=== PATIENT | female | born 1980 | race African-American/Black ===

== ENCOUNTER 2017-04-24 10:46 | Inpatient (IN) | payer OTHER ==
[~2017-04-24] VITALS: Ht 165.1 cm; Wt 85.7 kg
[2017-04-24] MEDS ORDERED: MORPHINE SULFATE 4 MG/ML CPJ (NOT FOR IM USE) IV STA (10:56)
[2017-04-24] MEDS ORDERED: MAGNESIUM/ALUMINUM HYDROXIDE/SIMETHICONE 30ML UDC PO STA (10:56)
[2017-04-24] MEDS ORDERED: VISCOUS LIDOCAINE 2% 15 ML UDC PO STA (10:56)
[2017-04-24] MEDS ORDERED: SODIUM CHLORIDE 0.9% 1,000 ML IV ONE (10:56)
[2017-04-24] MEDS ORDERED: FAMOTIDINE 20MG/2ML VIAL IV STA (10:56)
[2017-04-24] MEDS ORDERED: DICYCLOMINE 10 MG/5 ML ORAL SYR PO STA (10:56)
[2017-04-24] MEDS ORDERED: ONDANSETRON HCL 4MG/2ML VIAL IV STA (10:56)
[2017-04-24] MEDS ORDERED: NORCO (10:58)
[2017-04-24] MEDS ORDERED: CEPH500C2 PO (10:58)
[2017-04-24 11:31] LABS: EOSINOPHILS % 0.2 % (0.0-5.0); HEMATOCRIT. 40.4 % (36.0-48.0); HEMOGLOBIN. 13.4 g/dL (12.0-16.0); LYMPHOCYTES % 18.5 % (20.0-50.0); MEAN CORPUSCULAR HEMOGLOBIN 28.1 pg (28.0-32.0); MEAN CORPUSCULAR VOLUME 84.9 fL (81.0-99.0); MEAN PLATELET VOLUME 7.6 fl (7.4-10.4); MONOCYTES % 4.7 % (2.0-8.0); NEUTROPHILS % 75.6 % (40.0-76.0); PLATELET 291 x1000/uL (130-400); RED BLOOD CELL COUNT 4.76 mill/uL (4.2-5.4); RED CELL DISTRIBUTION WIDTH 14.1 % (11.6-14.6)
[2017-04-24 11:39] LABS: PROTHROMBIN TIME 10.7 sec (9.4-11.6)
[2017-04-24 11:45] LABS: HCG SCREEN NEGATIVE
[2017-04-24 11:47] LABS: CARBON DIOXIDE 23 mEq/L (21-32); CHLORIDE 102 mEq/L (98-107); ETHANOL BLOOD < 10 mg/dL
[2017-04-24] MEDS ORDERED: SUCRALFATE 1 G/10 ML UDC PO STA (12:11)
[2017-04-24] MEDS ORDERED: MORPHINE SULFATE 4 MG/ML CPJ (NOT FOR IM USE) IV ONE (13:15)
[2017-04-24 16:36] LABS: CLARITY URINE CLEAR (CLEAR); COLOR URINE YELLOW (YELLOW); GLUCOSE URINE NEGATIVE (NEGATIVE); KETONES URINE 3+ (NEGATIVE); LEUKOCYTE ESTERASE URINE 2+ (NEGATIVE); NITRITE URINE NEGATIVE (NEGATIVE); OCCULT BLOOD URINE TRACE (NEGATIVE); PH URINE 6.5 (4.5-8.0); PROTEIN URINE NEGATIVE (NEGATIVE); SPECIFIC GRAVITY URINE 1.015 (1.005-1.030)
[2017-04-24 16:50] LABS: *AMPHETAMINES SCREEN URINE NEGATIVE (NEGATIVE); *BARBITURATES SCREEN URINE NEGATIVE (NEGATIVE); *BENZODIAZEPINES SCREEN URINE NEGATIVE (NEGATIVE); *COCAINE SCREEN URINE NEGATIVE (NEGATIVE); METHADONE URINE SCREEN NEGATIVE (NEGATIVE); PHENCYCLIDINE URINE SCREEN NEGATIVE (NEGATIVE)
[2017-04-24 16:51] LABS: CANNABINOID URINE SCREEN PRESUMTIVE POSITIVE (NEGATIVE); OPIATES URINE SCREEN PRESUMTIVE POSITIVE (NEGATIVE)
[2017-04-24] MEDS ORDERED: CLONIDINE 0.1MG TABLET PO PRN (17:30)
[2017-04-24] MEDS ORDERED: ONDANSETRON HCL 4MG/2ML VIAL IV PRN (17:30)
[2017-04-24] MEDS ORDERED: ACETAMINOPHEN 325MG TABLET PO PRN (17:30)
[2017-04-24] MEDS ORDERED: DIPHENHYDRAMINE 50MG/ML VIAL IV PRN (17:30)
[2017-04-24] MEDS ORDERED: CEFTRIAXONE 1 G PREMIX 50 ML IV ONE (17:30)
[2017-04-24] MEDS ORDERED: CEFTRIAXONE 1 G PREMIX 50 ML IV SCH (17:30)
[2017-04-24] MEDS ORDERED: IPRATROPIUM/ALBUTEROL 0.5-3(2.5)MG/3ML NEB INH PRN (17:30)
[2017-04-24] MEDS: MORPHINE SULFATE 4 MG/ML CPJ (NOT FOR IM USE) IV PRN ×2 (17:42→21:33)
[2017-04-24] MEDS ORDERED: ROCEPHIN IVPB XX SCH (19:30)
[2017-04-24 20:00] VITALS: BP 119/74
[2017-04-24] MEDS: CEFTRIAXONE 2 G in DEXTROSE 5% WATER 50 ML IV SCH (21:33)
[2017-04-25] VITALS: BP 108/68
[2017-04-25] MEDS ORDERED: HYDR-523 PO (00:27)
[2017-04-25] MEDS: MORPHINE SULFATE 4 MG/ML CPJ (NOT FOR IM USE) IV PRN ×4 (01:50→20:31)
[2017-04-25] MEDS: HYDROCODONE/ACETAMINOPHEN 5/325MG TABLET PO PRN ×2 (03:12→10:53)
[2017-04-25 04:00] VITALS: BP 102/66
[2017-04-25 07:08] LABS: BASOPHILS % 0.7 % (0.0-2.0); EOSINOPHILS % 0.7 % (0.0-5.0); HEMATOCRIT. 33.6 % (36.0-48.0); HEMOGLOBIN. 11.2 g/dL (12.0-16.0); LYMPHOCYTES % 38.3 % (20.0-50.0); MEAN CORPUSCULAR HEMOGLOBIN 28.5 pg (28.0-32.0); MEAN CORPUSCULAR VOLUME 85.5 fL (81.0-99.0); MEAN PLATELET VOLUME 8.1 fl (7.4-10.4); MONOCYTES % 8.6 % (2.0-8.0); NEUTROPHILS % 51.7 % (40.0-76.0); PLATELET 228 x1000/uL (130-400); RED BLOOD CELL COUNT 3.93 mill/uL (4.2-5.4); RED CELL DISTRIBUTION WIDTH 14.1 % (11.6-14.6)
[2017-04-25 07:32] LABS: CARBON DIOXIDE 26 mEq/L (21-32); CHLORIDE 105 mEq/L (98-107)
[2017-04-25 07:35] LABS: HDL CHOLESTEROL 37 mg/dL (40-59); LDL CHOLESTEROL 120 mg/dL (5-100)
[2017-04-25 08:00] VITALS: BP 91/53
[2017-04-25 12:00] VITALS: BP 114/79
[2017-04-25] MEDS ORDERED: POTASSIUM CHLORIDE 20MEQ TABLET SR PO NR (13:00)
[2017-04-25 16:00] VITALS: BP 107/61
[2017-04-25 20:00] VITALS: BP 112/73
[2017-04-25] MEDS: CEFTRIAXONE 2 G in DEXTROSE 5% WATER 50 ML IV SCH (20:31)
[2017-04-25] MEDS ORDERED: ATORVASTATIN CALCIUM 10MG TABLET PO SCH (21:00)
[2017-04-26] VITALS: BP 104/62
[2017-04-26 04:00] VITALS: BP 107/64
[2017-04-26] MEDS: MORPHINE SULFATE 4 MG/ML CPJ (NOT FOR IM USE) IV PRN (04:57)
[2017-04-26 08:20] VITALS: BP 104/65
[2017-04-26] MEDS: HYDROCODONE/ACETAMINOPHEN 5/325MG TABLET PO PRN ×2 (08:21)
[2017-04-26 08:24] LABS: CARBON DIOXIDE 27 mEq/L (21-32); CHLORIDE 106 mEq/L (98-107)
[2017-04-26 08:42] LABS: BASOPHILS % 0.5 % (0.0-2.0); EOSINOPHILS % 1.2 % (0.0-5.0); HEMATOCRIT. 36.1 % (36.0-48.0); HEMOGLOBIN. 11.8 g/dL (12.0-16.0); LYMPHOCYTES % 44.2 % (20.0-50.0); MEAN CORPUSCULAR HEMOGLOBIN 28.2 pg (28.0-32.0); MEAN CORPUSCULAR VOLUME 86.3 fL (81.0-99.0); MEAN PLATELET VOLUME 8.6 fl (7.4-10.4); MONOCYTES % 8.2 % (2.0-8.0); NEUTROPHILS % 45.9 % (40.0-76.0); PLATELET 234 x1000/uL (130-400); RED BLOOD CELL COUNT 4.18 mill/uL (4.2-5.4); RED CELL DISTRIBUTION WIDTH 14.3 % (11.6-14.6)
[2017-04-26 12:06] VITALS: BP 102/61
[2017-04-26 12:50] VITALS: BP 102/61
== END 2017-04-26 14:26 | disposition home or self-care (01) | DRG 463 ==
LOC: ER 11:23 → 6EST 11:25 → ENRESERV 17:29 → EDBEDREQ 17:31
PROVIDERS: ADMIT Internal Medicine; ATTEND Internal Medicine
DX: N39.0 Urinary tract infection, site not specified (principal); I10 Essential (primary) hypertension; E87.6 Hypokalemia; F12.90 Cannabis use, unspecified, uncomplicated; N20.0 Calculus of kidney; K57.30 Diverticulosis of large intestine without perforation or abscess without bleeding; Z79.2 Long term (current) use of antibiotics; Z87.442 Personal history of urinary calculi; Q63.8 Other specified congenital malformations of kidney
CPT/HCPCS: 36415; 71010; 74176; 76705; 80053; 80061; 80305; 81001; 83690; 84703; 85025; 85610; 86850; 86900; 87040; 87086; 93005; 96361; 96374; 96375; 99285; G0482; J0696; J2270; J2405; J3490; J7030; J7040; J7060

== ENCOUNTER 2017-09-04 21:04 | Emergency (ER) | payer OTHER ==
[~2017-09-04] VITALS: Ht 165.1 cm; Wt 86.0 kg
[~2017-09-04 21:04] MED LIST: CEPH500C2 PO; HYDR-523 PO
[2017-09-04] MEDS ORDERED: ONDANSETRON HCL 4MG/2ML VIAL IV ONE (21:45)
[2017-09-04] MEDS ORDERED: SODIUM CHLORIDE 0.9% 1000ML BAG (SEPSIS BOLUS) IV ONE (21:45)
[2017-09-04] MEDS ORDERED: ACETAMINOPHEN 650MG/20.3ML UDC PO ONE (21:45)
[2017-09-04] MEDS ORDERED: FAMOTIDINE 20MG/2ML VIAL IV STA (21:47)
[2017-09-04] MEDS ORDERED: MAGNESIUM/ALUMINUM HYDROXIDE/SIMETHICONE 30ML UDC PO STA (21:47)
[2017-09-04 22:46] LABS: BASOPHILS % 0.7 % (0.0-2.0); EOSINOPHILS % 0.2 % (0.0-5.0); HEMATOCRIT. 45.6 % (36.0-48.0); HEMOGLOBIN. 15.1 g/dL (12.0-16.0); LYMPHOCYTES % 15.6 % (20.0-50.0); MEAN CORPUSCULAR HEMOGLOBIN 28.2 pg (28.0-32.0); MEAN PLATELET VOLUME 8.6 fl (7.4-10.4); MONOCYTES % 4.8 % (2.0-8.0); NEUTROPHILS % 78.7 % (40.0-76.0); PLATELET 313 x1000/uL (130-400); RED BLOOD CELL COUNT 5.37 mill/uL (4.2-5.4); RED CELL DISTRIBUTION WIDTH 14.1 % (11.6-14.6)
[2017-09-04 22:51] LABS: CHLORIDE 103 mEq/L (98-107)
[2017-09-04 22:52] LABS: INR 1.1; PROTHROMBIN TIME 11.3 sec (9.4-11.6)
[2017-09-04] MEDS ORDERED: DIPHENHYDRAMINE 50MG/ML VIAL IV ONE (23:15)
[2017-09-04] MEDS ORDERED: PROCHLORPERAZINE 10MG/2ML VIAL IV ONE (23:15)
[2017-09-04 23:54] LABS: CLARITY URINE CLEAR (CLEAR); COLOR URINE DARK YELLOW (YELLOW); KETONES URINE 3+ (NEGATIVE); LEUKOCYTE ESTERASE URINE NEGATIVE (NEGATIVE); NITRITE URINE NEGATIVE (NEGATIVE); OCCULT BLOOD URINE NEGATIVE (NEGATIVE); PROTEIN URINE TRACE (NEGATIVE); SPECIFIC GRAVITY URINE 1.035 (1.005-1.030)
[2017-09-05 00:24] VITALS: BP 125/79
[2017-09-05 00:58] LABS: HCG SCREEN NEGATIVE
== END 2017-09-05 01:34 | disposition home or self-care (01) ==
LOC: ER 23:29 → CANBEDREQ 09-05 05:01
DX: B34.9 Viral infection, unspecified (principal); E86.0 Dehydration; R11.2 Nausea with vomiting, unspecified; R07.89 Other chest pain; R82.4 Acetonuria; R03.0 Elevated blood-pressure reading, without diagnosis of hypertension; M79.1 Myalgia; Z88.6 Allergy status to analgesic agent; Z98.890 Other specified postprocedural states; F17.210 Nicotine dependence, cigarettes, uncomplicated
CPT/HCPCS: 36415; 71045; 80053; 81001; 83605; 83690; 84703; 85025; 85610; 87040; 87086; 87804; 93005; 96361; 96374; 96375; 99285; J0780; J1200; J2405; J3490; J7030; Z7610

== ENCOUNTER 2018-05-04 17:29 | Emergency (ER) | payer OTHER ==
[~2018-05-04] VITALS: Ht 165.1 cm; Wt 50.0 kg
[2018-05-04] MEDS ORDERED: SODIUM CHLORIDE 0.9% 1,000 ML IV ONE (18:02)
[2018-05-04 18:32] LABS: HCG SCREEN NEGATIVE
[2018-05-04 18:33] LABS: CHLORIDE 113 mEq/L (98-107)
[2018-05-04 18:34] LABS: BASOPHILS % 0.7 % (0.0-2.0); EOSINOPHILS % 0.9 % (0.0-5.0); HEMATOCRIT. 41.2 % (36.0-48.0); HEMOGLOBIN. 13.3 g/dL (12.0-16.0); LYMPHOCYTES % 19.3 % (20.0-50.0); MEAN CORPUSCULAR HEMOGLOBIN 28.2 pg (28.0-32.0); MEAN CORPUSCULAR VOLUME 87.3 fL (81.0-99.0); MEAN PLATELET VOLUME 7.7 fl (7.4-10.4); NEUTROPHILS % 74.1 % (40.0-76.0); PLATELET 212 x1000/uL (130-400); RED BLOOD CELL COUNT 4.73 mill/uL (4.2-5.4); RED CELL DISTRIBUTION WIDTH 14.7 % (11.6-14.6)
[2018-05-04 20:57] VITALS: BP 116/76
== END 2018-05-04 21:03 | disposition home or self-care (01) ==
LOC: ER 17:29
DX: R55 Syncope and collapse (principal); E83.51 Hypocalcemia; Z88.6 Allergy status to analgesic agent; Z98.890 Other specified postprocedural states
CPT/HCPCS: 36415; 80053; 82962; 84703; 85025; 93005; 96360; 99285; J7030

== ENCOUNTER 2020-05-31 12:43 | Emergency (ER) | payer OTHER ==
[~2020-05-31] VITALS: Ht 172.7 cm; Wt 118.0 kg
[2020-05-31] MEDS ORDERED: SODIUM CHLORIDE 0.9% 1,000 ML IV ONE (13:00)
[2020-05-31] MEDS ORDERED: ONDANSETRON HCL 4MG/2ML INJ IV STA ×2 (13:00→16:06)
[2020-05-31] MEDS ORDERED: MORPHINE SULFATE 4 MG/ML CPJ (NOT FOR IM USE) IV STA ×2 (13:00→16:06)
[2020-05-31 14:01] LABS: BASOPHILS % 1.2 % (0.0-2.0); EOSINOPHILS % 0.7 % (0.0-5.0); HEMATOCRIT. 41.8 % (36.0-48.0); LYMPHOCYTES % 33.5 % (20.0-50.0); MEAN CORPUSCULAR HEMOGLOBIN 28.8 pg (28.0-32.0); MEAN CORPUSCULAR VOLUME 85.7 fL (81.0-99.0); MEAN PLATELET VOLUME 8.5 fl (7.4-10.4); MONOCYTES % 5.2 % (2.0-8.0); NEUTROPHILS % 59.4 % (40.0-76.0); PLATELET 309 x1000/uL (130-400); RED BLOOD CELL COUNT 4.87 mill/uL (4.2-5.4); RED CELL DISTRIBUTION WIDTH 14.4 % (11.6-14.6)
[2020-05-31 14:07] LABS: CHLORIDE 115 mEq/L (98-107)
[2020-05-31 14:12] LABS: ETHANOL BLOOD < 10 mg/dL
[2020-05-31 14:12] LABS: CLARITY URINE CLOUDY (CLEAR); COLOR URINE YELLOW (YELLOW); KETONES URINE NEGATIVE (NEGATIVE); LEUKOCYTE ESTERASE URINE 1+ (NEGATIVE); NITRITE URINE POSITIVE (NEGATIVE); OCCULT BLOOD URINE 2+ (NEGATIVE); PH URINE 5.5 (4.5-8.0); PROTEIN URINE 2+ (NEGATIVE); SPECIFIC GRAVITY URINE 1.021 (1.005-1.030)
[2020-05-31 14:21] LABS: *AMPHETAMINES SCREEN URINE NEGATIVE (NEGATIVE); *BARBITURATES SCREEN URINE NEGATIVE (NEGATIVE); *BENZODIAZEPINES SCREEN URINE NEGATIVE (NEGATIVE); *COCAINE SCREEN URINE NEGATIVE (NEGATIVE); METHADONE URINE SCREEN NEGATIVE (NEGATIVE)
[2020-05-31 14:22] LABS: PHENCYCLIDINE URINE SCREEN NEGATIVE (NEGATIVE)
[2020-05-31] MEDS ORDERED: CEFTRIAXONE 1 G PREMIX 50 ML IV ONE (14:45)
[2020-05-31 15:06] LABS: CANNABINOID URINE SCREEN PRESUMTIVE POSITIVE (NEGATIVE); OPIATES URINE SCREEN PRESUMTIVE POSITIVE (NEGATIVE)
[2020-05-31 15:20] LABS: PROTHROMBIN TIME 10.6 sec (9.6-11.0)
[2020-05-31 17:43] VITALS: BP 118/73
== END 2020-05-31 17:47 | disposition home or self-care (01) ==
LOC: ER 12:43
DX: N23 Unspecified renal colic (principal); N30.00 Acute cystitis without hematuria
CPT/HCPCS: 36415; 74176; 80053; 80305; 80320; 81003; 81025; 83690; 85025; 85610; 96361; 96375; 96376; 99285; J0696; J2270; J2405; J7030; G0480

== ENCOUNTER 2024-07-22 18:30 | Inpatient (IN) | payer SELFPAY ==
[~2024-07-22] VITALS: Ht 165.1 cm; Wt 51809.2 kg
[2024-07-22 21:36] LABS: HEMATOCRIT. 43.7 % (36.0-48.0); HEMOGLOBIN. 14.4 g/dL (12.0-16.0); MEAN CORPUSCULAR HEMOGLOBIN 28.2 pg (28.0-32.0); MEAN CORPUSCULAR HGB CONC 32.9 g/dL (31.0-37.0); MEAN CORPUSCULAR VOLUME 85.8 fL (81.0-99.0); MEAN PLATELET VOLUME 8.6 fl (7.4-10.4); PLATELET 368 x1000/uL (130-400); RED CELL DISTRIBUTION WIDTH 15.9 % (11.6-14.6); WHITE BLOOD COUNT 22.9 x1000/uL (4.5-11.0)
[2024-07-22 21:40] LABS: CHLORIDE 109 mEq/L (98-107); DIFFERENTIAL COMMENT 1; POTASSIUM 5.9 mEq/L (3.5-5.1); SODIUM 138 mEq/L (136-145)
[2024-07-22 21:41] LABS: CALCIUM 9.4 mg/dL (8.7-10.4); CARBON DIOXIDE 21 mEq/L (21-32)
[2024-07-22 21:46] LABS: CREATININE 1.1 mg/dL (0.6-1.0); GLUCOSE 136 mg/dL (70-105); UREA NITROGEN BLOOD 11 mg/dL (9-23)
[2024-07-22 21:48] LABS: ALANINE AMINOTRANSFERASE 30 IU/L (10-49); ALBUMIN 4.5 g/dL (3.2-4.8); ASPARTATE AMINOTRANSFERASE 35 IU/L (<34); BILIRUBIN TOTAL 0.3 mg/dL (0.1-1.0)
[2024-07-22] MEDS: ONDANSETRON 4MG ODT PO ONE (22:01)
[2024-07-22] MEDS: KETOROLAC 30MG/ML VIAL IM ONE (22:01)
[2024-07-22] MEDS: ACETAMINOPHEN 325MG TABLET PO ONE (22:01)
[2024-07-22 22:11] LABS: BILIRUBIN DIRECT < 0.1 mg/dL (<=3.0)
[2024-07-22 22:32] LABS: ANISOCYTOSIS 1+; PLATELET ESTIMATE NORMAL
[2024-07-23] MEDS: CALCIUM CHLORIDE 1,000 MG in DEXT 5% WATER 100 ML IV ONE (00:30)
[2024-07-23] MEDS: INSULIN REGULAR (HUMULIN R) 1000UNITS/10ML VIAL IV ONE (00:30)
[2024-07-23] MEDS: DEXTROSE 50% WATER 50ML SYRINGE IV ONE (00:30)
[2024-07-23] MEDS: HYDROCODONE/ACETAMINOPHEN 7.5/325MG TABLET PO ONE (00:47)
[2024-07-23] MEDS: CEFTRIAXONE 1GM/50ML 50 ML IV ONE (00:51)
[2024-07-23 01:34] LABS: CLARITY URINE CLOUDY (CLEAR); COLOR URINE YELLOW (YELLOW); GLUCOSE URINE NEGATIVE (NEGATIVE); KETONES URINE TRACE (NEGATIVE); LEUKOCYTE ESTERASE URINE 2+ (NEGATIVE); NITRITE URINE POSITIVE (NEGATIVE); OCCULT BLOOD URINE 1+ (NEGATIVE); PH URINE 6.5 (4.5-8.0); PROTEIN URINE TRACE (NEGATIVE); SPECIFIC GRAVITY URINE 1.026 (1.005-1.030); UROBILINOGEN URINE 0.2 E.U./dL (0.2-1.0)
[2024-07-23 04:13] LABS: SQUAMOUS EPITHELIAL CELL URINE 1+ /lpf (RARE/1+)
[2024-07-23 04:14] LABS: RBC URINE 0-2 /hpf (0-2)
[2024-07-23 04:15] LABS: BACTERIA URINE 3+; CALCIUM OXALATE CRYSTALS URINE 1+ /lpf
[2024-07-23] MEDS: INSULIN REGULAR (HUMULIN R) 1000UNITS/10ML VIAL IV NR (04:15)
[2024-07-23] MEDS: CALCIUM CHLORIDE 1,000 MG in DEXT 5% WATER 100 ML IV NR (04:16)
[2024-07-23] MEDS: MORPHINE SULFATE 4 MG/ML INJ (FOR IV/IM USE) IV ONE (04:17)
[2024-07-23] MEDS ORDERED: IPRATROPIUM/ALBUTEROL 0.5-3(2.5)MG/3ML NEB HHN PRN (04:30)
[2024-07-23] MEDS: SODIUM CHLORIDE 0.9% 1,000 ML IV SCH (04:30)
[2024-07-23] MEDS ORDERED: DEXTROSE 50% WATER 50ML SYRINGE IV PRN ×2 (04:30→11:15)
[2024-07-23] MEDS ORDERED: DOCUSATE SODIUM 100MG CAPSULE PO PRN (04:30)
[2024-07-23] MEDS ORDERED: MAGNESIUM/ALUMINUM HYDROXIDE/SIMETHICONE 30ML UDC PO PRN (04:30)
[2024-07-23] MEDS ORDERED: CLONIDINE 0.1MG TABLET PO PRN (04:30)
[2024-07-23] MEDS: HYDROCODONE/ACETAMINOPHEN 5/325MG TABLET PO PRN (07:11)
[2024-07-23] MEDS: ONDANSETRON HCL 4MG/2ML INJ IV PRN (07:15)
[2024-07-23] MEDS: BLOOD SUGAR DIAGNOSTIC STRIP TEST SCH ×2 (08:43→12:06)
[2024-07-23] MEDS: ENOXAPARIN 30MG/0.3ML SYR SUBCUT SCH (08:44)
[2024-07-23 11:19] VITALS: BP 118/78; PULSE 98; RESP 18; TEMP 37.0296
[2024-07-23 12:00] VITALS: BP 98/76; PULSE 80; RESP 16; TEMP 37.00296; O2SAT 99
[2024-07-23] MEDS: SODIUM CHLORIDE 0.45% 1,000 ML IV SCH (12:06)
[2024-07-23] MEDS: INSULIN LISPRO 100 UNITS/ML SUBCUT SCH (12:06)
[2024-07-23] MEDS: TAMSULOSIN HCL 0.4MG SR CAPSULE PO SCH (12:06)
[2024-07-23] MEDS: DILTIAZEM HCL 30MG TABLET PO SCH (14:00)
[2024-07-23 14:46] VITALS: BP 120/74; RESP 16; TEMP 36.6696; O2SAT 99
[2024-07-23] MEDS: KETOROLAC 30MG/ML VIAL IV PRN (16:48)
[2024-07-23 17:34] LABS: PROTHROMBIN TIME 11.3 sec (9.6-11.0)
[2024-07-23 17:36] LABS: CARBON DIOXIDE 21 mEq/L (21-32); CHLORIDE 108 mEq/L (98-107); POTASSIUM 4.1 mEq/L (3.5-5.1); SODIUM 138 mEq/L (136-145)
[2024-07-23 17:37] LABS: CALCIUM 9.1 mg/dL (8.7-10.4)
[2024-07-23 17:39] LABS: CARBON DIOXIDE 20 mEq/L (21-32); CHLORIDE 107 mEq/L (98-107); POTASSIUM 4.1 mEq/L (3.5-5.1); SODIUM 138 mEq/L (136-145)
[2024-07-23 17:40] LABS: CALCIUM 9.3 mg/dL (8.7-10.4)
[2024-07-23 17:41] LABS: CREATININE 1.3 mg/dL (0.6-1.0); GLUCOSE 95 mg/dL (70-105)
[2024-07-23 17:42] LABS: UREA NITROGEN BLOOD 16 mg/dL (9-23)
[2024-07-23 17:43] LABS: ALANINE AMINOTRANSFERASE 19 IU/L (10-49); ALBUMIN 3.6 g/dL (3.2-4.8); ASPARTATE AMINOTRANSFERASE 15 IU/L (<34); CREATINE KINASE 69 IU/L (34-145)
[2024-07-23 17:44] LABS: BILIRUBIN DIRECT 0.3 mg/dL (<=3.0); BILIRUBIN TOTAL 0.9 mg/dL (0.1-1.0); PHOSPHORUS 2.7 mg/dL (2.5-4.9); PROTEIN TOTAL 6.4 g/dL (6.0-8.3)
[2024-07-23 17:45] LABS: CREATININE 1.3 mg/dL (0.6-1.0); GLUCOSE 89 mg/dL (70-105); HCG SCREEN NEGATIVE; UREA NITROGEN BLOOD 16 mg/dL (9-23)
[2024-07-23 17:46] LABS: ALBUMIN 3.6 g/dL (3.2-4.8)
[2024-07-23 17:47] LABS: ALANINE AMINOTRANSFERASE 19 IU/L (10-49); ASPARTATE AMINOTRANSFERASE 16 IU/L (<34); BILIRUBIN TOTAL 0.9 mg/dL (0.1-1.0); PROTEIN TOTAL 6.5 g/dL (6.0-8.3)
[2024-07-23 17:53] LABS: HEMATOCRIT. 40.6 % (36.0-48.0); HEMOGLOBIN. 13.1 g/dL (12.0-16.0); MEAN CORPUSCULAR HEMOGLOBIN 27.8 pg (28.0-32.0); MEAN CORPUSCULAR HGB CONC 32.2 g/dL (31.0-37.0); MEAN CORPUSCULAR VOLUME 86.3 fL (81.0-99.0); MEAN PLATELET VOLUME 8.9 fl (7.4-10.4); PLATELET 269 x1000/uL (130-400); RED CELL DISTRIBUTION WIDTH 15.3 % (11.6-14.6); WHITE BLOOD COUNT 23.3 x1000/uL (4.5-11.0)
[2024-07-23 17:54] LABS: DIFFERENTIAL COMMENT 1
[2024-07-23 20:00] VITALS: BP 110/67; PULSE 89; RESP 17; TEMP 36.22512; O2SAT 95
[2024-07-23 20:14] LABS: PLATELET ESTIMATE NORMAL
[2024-07-24] MEDS: CEFTRIAXONE 1GM/50ML 50 ML IV SCH (00:21)
[2024-07-24 01:03] VITALS: BP 106/64; PULSE 90; RESP 18; TEMP 37.16964; O2SAT 95
[2024-07-24 04:00] VITALS: BP 110/76; PULSE 78; RESP 19; TEMP 36.3918; O2SAT 94
[2024-07-24 08:00] VITALS: BP 102/68; PULSE 108; RESP 21; TEMP 36.05844; O2SAT 100
[2024-07-24 09:30] LABS: CHLORIDE 106 mEq/L (98-107); SODIUM 138 mEq/L (136-145)
[2024-07-24 09:31] LABS: CALCIUM 8.6 mg/dL (8.7-10.4); CARBON DIOXIDE 22 mEq/L (21-32)
[2024-07-24 09:36] LABS: CREATININE 1.3 mg/dL (0.6-1.0); GLUCOSE 72 mg/dL (70-105)
[2024-07-24 09:37] LABS: LDL CHOLESTEROL 78 mg/dL (5-100); TRIGLYCERIDE 101 mg/dL (0-150); UREA NITROGEN BLOOD 18 mg/dL (9-23)
[2024-07-24 09:38] LABS: ALANINE AMINOTRANSFERASE 16 IU/L (10-49); ALBUMIN 3.5 g/dL (3.2-4.8); ASPARTATE AMINOTRANSFERASE 15 IU/L (<34); BILIRUBIN DIRECT 0.5 mg/dL (<=3.0); CHOLESTEROL 143 mg/dL (<200); HDL CHOLESTEROL 35 mg/dL (>65); PHOSPHORUS 2.4 mg/dL (2.5-4.9)
[2024-07-24 09:39] LABS: BILIRUBIN TOTAL 1.1 mg/dL (0.1-1.0); PROTEIN TOTAL 6.3 g/dL (6.0-8.3)
[2024-07-24 09:41] LABS: T4 FREE 1.51 ng/dL (0.89-1.76)
[2024-07-24 10:18] LABS: *AMPHETAMINES SCREEN URINE NEGATIVE (NEGATIVE); *BENZODIAZEPINES SCREEN URINE NEGATIVE (NEGATIVE)
[2024-07-24 10:18] LABS: TROPONIN I HIGH SENSITIVITY < 4 ng/L (3.0-34)
[2024-07-24 10:19] LABS: *BARBITURATES SCREEN URINE NEGATIVE (NEGATIVE); *COCAINE SCREEN URINE NEGATIVE (NEGATIVE)
[2024-07-24 10:21] LABS: CANNABINOID URINE SCREEN NEGATIVE (NEGATIVE); ECSTASY MDMA SCREEN URINE NEGATIVE (NEGATIVE); METHADONE URINE SCREEN NEGATIVE (NEGATIVE); OPIATES URINE SCREEN NEGATIVE (NEGATIVE); PHENCYCLIDINE URINE SCREEN NEGATIVE (NEGATIVE)
[2024-07-24 10:26] LABS: HEMATOCRIT. 37.4 % (36.0-48.0); HEMOGLOBIN. 12.1 g/dL (12.0-16.0); MEAN CORPUSCULAR HEMOGLOBIN 27.9 pg (28.0-32.0); MEAN CORPUSCULAR HGB CONC 32.4 g/dL (31.0-37.0); MEAN CORPUSCULAR VOLUME 86.2 fL (81.0-99.0); MEAN PLATELET VOLUME 8.8 fl (7.4-10.4); PLATELET 215 x1000/uL (130-400); RED BLOOD CELL COUNT 4.34 mill/uL (4.2-5.4); RED CELL DISTRIBUTION WIDTH 15.8 % (11.6-14.6); WHITE BLOOD COUNT 6.6 x1000/uL (4.5-11.0)
[2024-07-24 10:33] LABS: DIFFERENTIAL COMMENT 1
[2024-07-24] MEDS: KETOROLAC 30MG/ML VIAL IV SCH (14:00)
[2024-07-24 16:19] LABS: MICROCYTOSIS 1+; PLATELET ESTIMATE NORMAL
[2024-07-24 20:00] VITALS: BP 121/65; PULSE 92; RESP 20; TEMP 36.16956; O2SAT 98
[2024-07-24] MEDS: DIAZEPAM 5 MG/ML 2ML SYR IV SCH (23:46)
[2024-07-25] VITALS: BP 117/74; PULSE 101; RESP 20; TEMP 35.5584; O2SAT 98
[2024-07-25 04:00] VITALS: BP 147/84; PULSE 99; RESP 20; TEMP 36.50292; O2SAT 97
[2024-07-25] MEDS: CEFTRIAXONE 1GM/50ML 50 ML IV SCH (05:12)
[2024-07-25 08:00] VITALS: BP 105/63; PULSE 80; RESP 18; TEMP 36.3918; O2SAT 96
[2024-07-25 10:48] LABS: BASOPHILS % 0.2 % (0.0-2.0); EOSINOPHILS % 0.4 % (0.0-5.0); HEMATOCRIT. 34.5 % (36.0-48.0); HEMOGLOBIN. 11.2 g/dL (12.0-16.0); MEAN CORPUSCULAR HEMOGLOBIN 27.8 pg (28.0-32.0); MEAN CORPUSCULAR HGB CONC 32.3 g/dL (31.0-37.0); MEAN CORPUSCULAR VOLUME 86.1 fL (81.0-99.0); MEAN PLATELET VOLUME 8.8 fl (7.4-10.4); NEUTROPHILS % 84.4 % (40.0-76.0); PLATELET 223 x1000/uL (130-400); RED BLOOD CELL COUNT 4.01 mill/uL (4.2-5.4); RED CELL DISTRIBUTION WIDTH 15.6 % (11.6-14.6); WHITE BLOOD COUNT 19.8 x1000/uL (4.5-11.0)
[2024-07-25 11:16] LABS: CHLORIDE 107 mEq/L (98-107); POTASSIUM 4.2 mEq/L (3.5-5.1); SODIUM 137 mEq/L (136-145)
[2024-07-25 11:18] LABS: CARBON DIOXIDE 22 mEq/L (21-32)
[2024-07-25] MEDS: MAGNESIUM 1 G PREMIX 100 ML IV NR (11:18)
[2024-07-25 11:19] LABS: CALCIUM 8.7 mg/dL (8.7-10.4)
[2024-07-25 11:20] LABS: UREA NITROGEN BLOOD 23 mg/dL (9-23)
[2024-07-25 11:23] LABS: CREATININE 1.3 mg/dL (0.6-1.0); GLUCOSE 96 mg/dL (70-105)
[2024-07-25 11:25] LABS: ALANINE AMINOTRANSFERASE 12 IU/L (10-49); ALBUMIN 3.4 g/dL (3.2-4.8); ASPARTATE AMINOTRANSFERASE 11 IU/L (<34)
[2024-07-25 11:26] LABS: BILIRUBIN DIRECT 0.1 mg/dL (<=3.0); BILIRUBIN TOTAL 0.3 mg/dL (0.1-1.0); PHOSPHORUS 2.4 mg/dL (2.5-4.9); PROTEIN TOTAL 6.2 g/dL (6.0-8.3)
[2024-07-25 12:00] VITALS: BP 102/64; PULSE 78; RESP 18; TEMP 36.61404; O2SAT 97
[2024-07-25] MEDS: SODIUM PHOSPHATE 10 MMOL in DEXT 5% WATER 246.6667 ML IV NR (14:45)
[2024-07-25 16:35] VITALS: BP 110/67; PULSE 92; RESP 18; TEMP 37.503; O2SAT 98
[2024-07-25 20:00] VITALS: BP 96/55; PULSE 90; RESP 20; TEMP 36.33624; O2SAT 99
[2024-07-26] VITALS (17 sets, daily range): BP systolic 100–140; BP diastolic 50–94; PULSE 62–107; RESP 12–20; TEMP 36.16956–37.2252; O2SAT 95–100
[2024-07-26 08:23] LABS: CALCIUM 8.4 mg/dL (8.7-10.4); CARBON DIOXIDE 22 mEq/L (21-32); CHLORIDE 105 mEq/L (98-107); POTASSIUM 4.5 mEq/L (3.5-5.1); SODIUM 135 mEq/L (136-145)
[2024-07-26 08:28] LABS: CREATININE 1.1 mg/dL (0.6-1.0); GLUCOSE 100 mg/dL (70-105)
[2024-07-26 08:29] LABS: UREA NITROGEN BLOOD 18 mg/dL (9-23)
[2024-07-26 08:31] LABS: PHOSPHORUS 2.8 mg/dL (2.5-4.9)
[2024-07-26 08:37] LABS: BASOPHILS % 0.1 % (0.0-2.0); EOSINOPHILS % 0.3 % (0.0-5.0); HEMATOCRIT. 32.7 % (36.0-48.0); HEMOGLOBIN. 10.4 g/dL (12.0-16.0); LYMPHOCYTES % 9.1 % (20.0-50.0); MEAN CORPUSCULAR HGB CONC 31.7 g/dL (31.0-37.0); MEAN CORPUSCULAR VOLUME 85.2 fL (81.0-99.0); MEAN PLATELET VOLUME 8.7 fl (7.4-10.4); MONOCYTES % 8.2 % (2.0-8.0); NEUTROPHILS % 82.3 % (40.0-76.0); PLATELET 218 x1000/uL (130-400); RED BLOOD CELL COUNT 3.84 mill/uL (4.2-5.4); RED CELL DISTRIBUTION WIDTH 15.4 % (11.6-14.6); WHITE BLOOD COUNT 15.7 x1000/uL (4.5-11.0)
[2024-07-26] MEDS ORDERED: NALOXONE HCL 0.4MG/ML VIAL IV PRN (12:00)
[2024-07-26] MEDS: MORPHINE SULFATE 2 MG/ML INJ (NOT FOR IM USE) IV PRN (12:57)
[2024-07-26] MEDS ORDERED: IOHEXOL-300 50 ML BOTTLE IV ONE (13:06)
[2024-07-26] MEDS ORDERED: LIDOCAINE HCL 1% 10 MG/ML 10ML VIAL ONE ×2 (13:06→14:03)
[2024-07-26] MEDS ORDERED: MIDAZOLAM HCL 2 MG/2 ML VIAL IV NR (13:50)
[2024-07-26] MEDS ORDERED: MIDAZOLAM HCL 2 MG/2 ML VIAL ONE (13:50)
[2024-07-26] MEDS: FENTANYL CITRATE/PF 50MCG/ML 2ML VIAL IV ONE (14:00)
[2024-07-26] MEDS ORDERED: FENTANYL CITRATE/PF 50MCG/ML 2ML VIAL ONE (14:03)
[2024-07-27] VITALS: BP 101/64; PULSE 89; RESP 18; TEMP 36.55848; O2SAT 96
[2024-07-27] MEDS: CEFAZOLIN 1000MG PREMIX 50 ML IV SCH (00:17)
[2024-07-27 04:00] VITALS: BP 103/71; PULSE 86; RESP 18; TEMP 36.55848; O2SAT 97
[2024-07-27 08:00] VITALS: BP 133/79; PULSE 85; RESP 19; TEMP 36.61404; O2SAT 100
[2024-07-27 08:24] LABS: BASOPHILS % 0.3 % (0.0-2.0); EOSINOPHILS % 0.8 % (0.0-5.0); HEMATOCRIT. 31.1 % (36.0-48.0); HEMOGLOBIN. 10.3 g/dL (12.0-16.0); MEAN CORPUSCULAR HEMOGLOBIN 28.4 pg (28.0-32.0); MEAN CORPUSCULAR HGB CONC 33.3 g/dL (31.0-37.0); MEAN CORPUSCULAR VOLUME 85.4 fL (81.0-99.0); MEAN PLATELET VOLUME 8.4 fl (7.4-10.4); MONOCYTES % 13.8 % (2.0-8.0); NEUTROPHILS % 66.1 % (40.0-76.0); PLATELET 243 x1000/uL (130-400); RED BLOOD CELL COUNT 3.64 mill/uL (4.2-5.4); RED CELL DISTRIBUTION WIDTH 15.4 % (11.6-14.6); WHITE BLOOD COUNT 10.1 x1000/uL (4.5-11.0)
[2024-07-27 08:27] LABS: CARBON DIOXIDE 25 mEq/L (21-32); CHLORIDE 107 mEq/L (98-107); POTASSIUM 3.7 mEq/L (3.5-5.1); SODIUM 140 mEq/L (136-145)
[2024-07-27 08:28] LABS: CALCIUM 8.4 mg/dL (8.7-10.4)
[2024-07-27 08:33] LABS: CREATININE 0.9 mg/dL (0.6-1.0); GLUCOSE 92 mg/dL (70-105); UREA NITROGEN BLOOD 11 mg/dL (9-23)
[2024-07-27] MEDS ORDERED: TAMS-11 PO (09:57)
[2024-07-27] MEDS ORDERED: HYDR-4001 MT (09:57)
[2024-07-27] MEDS ORDERED: SULF1TAB48 MT (10:11)
[2024-07-27 11:46] VITALS: BP 116/76; PULSE 85; RESP 18; TEMP 36.61404; O2SAT 100
[2024-07-27 16:00] VITALS: BP 128/77; PULSE 60; RESP 18; TEMP 36.61404; O2SAT 100
[2024-07-27 20:00] VITALS: BP 102/49; PULSE 83; RESP 18; TEMP 36.72516; O2SAT 97
[2024-07-28 07:42] VITALS: BP 139/85; PULSE 89; RESP 18; TEMP 36.61404; O2SAT 95
[2024-07-28] MEDS: ACETAMINOPHEN 325MG TABLET PO PRN (09:53)
[2024-07-28 11:48] VITALS: BP 136/80; PULSE 82; RESP 18; TEMP 36.61404; O2SAT 98
[2024-07-28 16:00] VITALS: BP 109/56; PULSE 74; RESP 18; TEMP 36.61404; O2SAT 99
[2024-07-28 16:32] VITALS: BP 109/56; PULSE 74; TEMP 97.9; O2SAT 99
== END 2024-07-28 17:27 | disposition home health service (06) | DRG 720 ==
LOC: ER 18:30 → 5WST 07-23 01:37 → 6EST 07-24 01:35
PROVIDERS: ADMIT Family Medicine Adult Medicine; ATTEND Family Medicine Adult Medicine
PROC: 0T9030Z Drainage of Right Kidney with Drainage Device, Percutaneous Approach (ICD-10-PCS; principal; 2024-07-26)
DX: A41.9 Sepsis, unspecified organism (principal); N17.9 Acute kidney failure, unspecified; E83.39 Other disorders of phosphorus metabolism; E83.42 Hypomagnesemia; E87.5 Hyperkalemia; N13.6 Pyonephrosis; F17.210 Nicotine dependence, cigarettes, uncomplicated; Z87.442 Personal history of urinary calculi; Z88.6 Allergy status to analgesic agent; Z93.6 Other artificial openings of urinary tract status; Z88.8 Allergy status to other drugs, medicaments and biological substances; Z79.899 Other long term (current) drug therapy
CPT/HCPCS: 36415; 50432; 74176; 76770; 80048; 80053; 80061; 80076; 80305; 81003; 82550; 82962; 83036; 83605; 83735; 83880; 84100; 84145; 84439; 84484; 84703; 85025; 87077; 87186; 93005; 93970; 94640; 99152; 99153; 99285; C1729; C1760; C1769; C1887; J0690; J0696; J1815; J1885; J2250; J2270; J2405; J3010; J3475; J3490; J7060; L8514; Q0162; Q9967; G0500